=== PATIENT | female | born 1995 | race Hispanic/Latino ===

== ENCOUNTER 2017-11-11 07:49 | Inpatient (IN) | payer MEDICAID, OTHER, SELFPAY ==
[2017-11-11 08:21] VITALS: BMI 33.5
--- NOTE | 2017-11-11 09:16 | PDOC.LDHP ---
Labor and Delivery H&P Chief complaint: contractions HPI: This is a 22yo @ 38.6wk by LMP consistent w/ 9.5wk sontip, presents for CTX that started about 6:00am this morning. She is feeling them every 10min. Also complains of blood tinged leaked of mucous. No gush of fluid, vaginal bleeding. + movement. Denies any MATHIS, RUQ pain. Due date: 11/19/17 Dating criteria: last menstrual period Grav: 3 Para: 2 OB History Details: Has hx BV and Candidiasis in s/p treatment 2010 - pounds 10oz in reading - labor was 7 hrs 2014 - pounds 9oz in [place] - labor was 4 hours Current complications: none Abnormal US findings: No Past Medical History: BV and Candidiasis in s/p treatment Current medications: pre-tong vitamins Previous surgical history: cholecystectomy Social history: none - Physical Exam Vital signs reviewed and normal: yes General: NAD, resting, breathing through contractions Heart: RRR Lungs: nonlabored breathing Abdomen: NTTP Extremeties: trace edema FHT: category 1 - OB Labs Blood type: A RH: negative Antibody Screen: negative HIV: negative RPR: negative HEPSAg: negative 1 hour GCT: negative GBS: negative Rubella: immune Additional Labs: LSIL/HRHPV on PAP. Exposure to TB as recently immigrated from [place] - Quantiferon Gold negative - Plan -: This is a 22 yo @ 38.6 wk by LMP consistent w/ 9.5wk paola presents with CTX and possible LOF. 1) TIUP - Monitor in L&D. Access labor. Amnisure sent to r/o ROM. NST - Alexx strip. Will recheck patient in 2 hours 2) Hx of SGA and previous in [place]. 2nd trimester US normal 3) GBS negative 4) Recent immigration from [place] - TB negative 5) Rh negative - s/p Rhogam at 28weeks. May need Rhogam PP. 6) Hx of BV and Candidiasis in s/p treatment. <Romana Valenzuela - Last Filed: 11/11/17 09:49> <Isaiah Sanchez - Last Filed: 11/11/17 10:37> Allergies/Adverse Reactions: Allergies Allergy/AdvReac Type Severity Reaction Status Date / Time No Known Allergies Allergy Verified 11/11/17 08:17 Attending Addendum - Attending Addendum Date/Time: 11/11/17 1036 I personally evaluated the patient and discussed the management with Dr. VERA. I agree with and repeated the History, Examination, Assessment and Plan documented above with any addition or exceptions noted below. @ 38w6d by good dates in labor with +SROM at 0600. Keep for expectant management as prefers low intervention. Anticipate . <Isaiah Sanchez - Last Filed: 11/11/17 10:37>
[2017-11-11 09:32] LABS: Amnisure Test RUPTURE DETECTED (No Rupture)
[2017-11-11 09:34] LABS: Amnisure Internal Control QC ACCEPTABLE (ACCEPTABLE)
--- NOTE | 2017-11-11 09:51 | PDOC.EVN ---
Event Note - Event Note Event Note: Amnisure positive. SROM likely around 6:00am this morning. Cervical Check by Nurse at 9:45am /-2 posterior. Clear fluid. A/P: 1) TIUP in labor - will admit patient to L&D and continue labor orders. 2) Rh negative - may need Rhogam PP. 3) GBS negative 4) LSIL/HRHPV - f/u outpatient.
[2017-11-11] MEDS: Lactated Ringer's 1,000 ML IV SCH ×2 (10:31→20:58)
[2017-11-11] MEDS ORDERED: Misoprostol 200 MCG TAB PR PRN (10:42)
[2017-11-11] MEDS ORDERED: Carboprost 250 MCG/ML AMP IM PRN (10:42)
[2017-11-11] MEDS ORDERED: Ibuprofen 800 MG TAB PO PRN (10:42)
[2017-11-11] MEDS ORDERED: Ondansetron HCl/PF 4 MG/2 ML Vial IVP PRN (10:42)
[2017-11-11] MEDS ORDERED: Acetaminophen 500 MG TAB PO PRN (10:42)
[2017-11-11] MEDS ORDERED: Lidocaine 1% (PF) 30 ML VIAL SC PRN (10:42)
[2017-11-11] MEDS ORDERED: Promethazine HCl 25 MG/ML VIAL IM PRN (10:42)
[2017-11-11] MEDS ORDERED: Diphenoxylate HCl/Atropine Tablet PO PRN (10:42)
[2017-11-11] MEDS ORDERED: Methylergonovine 0.2 MG/ML VIAL IM PRN (10:42)
[2017-11-11] MEDS ORDERED: Butorphanol Tartrate 1 MG/ML VIAL SLOW IVP PRN (10:42)
[2017-11-11 11:02] LABS: Mean Corpuscular HGB CONC 34.7 g/dL (32.0-36.0); Mean Corpuscular Hemoglobin 29.6 pg (27.0-31.0); Mean Corpuscular Volume 85.3 fl (81.0-99.0); Mean Platelet Volume 9.2 fL (7.4-10.4); Platelet Count 181 thou/uL (130-400); Red Blood Cell (RBC) Count 4.72 mill/uL (4.20-5.40); White Blood Cell (WBC) Count 7.3 thou/uL (4.8-10.8)
[2017-11-11 11:36] LABS: HBSAg Index 0.19 S/CO (0-0.99); HIV (1/2) Antibody/Antigen Non-Reactive (NonReactive); HIV 1/2 INDEX 0.25 S/CO (<1.00); Hep B Surf Ag Non-Reactive S/CO (NonReactive); Syphilis Antibody Nonreactive (Nonreactive); Syphilis Antibody Index 0.03 S/CO (<1.00 Non-Reactive)
--- NOTE | 2017-11-11 11:50 | PDOC.LDPN ---
Labor & Delivery Progress Note - Subjective Subjective: comfortable, painful contractions - Objective Vital signs reviewed and normal: yes General: NAD, breathing through contractions Uterine fundus: palpable contractions SVE: @ 1145 by nurse Amy Dilation: 5 Effacement: 90% Station: -2 - Assessment (1) Term Code(s): Z34.80 - ENCOUNTER FOR SUPRVSN OF NORMAL , UNSP TRIMESTER Current Visit: Yes Status: Acute Comment: 22 yo @ 38.6wk by LMP consistent w/ 9.5wk sono -Pt making change on her own -Intermittent monitoring as she is low risk -cervical checks q2h Plan: continue plan of care <Usha Saunders - Last Filed: 11/11/17 11:48> Attending Addendum - Attending Addendum Date/Time: 11/11/17 8805 I personally evaluated the patient and discussed the management with Dr. VERA. I agree with the History, Examination, Assessment and Plan documented above with any addition or exceptions noted below. <Isaiah Sanchez - Last Filed: 11/11/17 12:56>
--- NOTE | 2017-11-11 13:49 | PDOC.LDPN ---
Labor & Delivery Progress Note - Subjective Subjective: painful contractions - Objective Vital signs reviewed and normal: yes General: breathing through contractions Uterine fundus: non tender Dilation: 7 Effacement: 90% Station: -1 FHT: category 1 (130/mod/+accel/no decel) [place] contractions every: q1-3 minutes Plan: continue plan of care -: 22 yo @ 38.6wk by LMP consistent w/ 9.5wk sono - Pt making change on her own - Intermittent monitoring as she is low risk - Cervical checks q2h
[2017-11-11] MEDS: NS / Oxytocin 40 units/1000ml 1,000 ML IV PRN ×2 (16:45→18:05)
--- NOTE | 2017-11-11 16:55 | PDOC.LDPN ---
Labor & Delivery Progress Note - Subjective Subjective: painful contractions - Objective Vital signs reviewed and normal: yes General: breathing through contractions Dilation: 9 Effacement: 100% Station: 1+ FHT: category 1 (120/mod/+accel/no decel) [place] contractions every: q1-3 min <Susan Garcia - Last Filed: 11/11/17 16:22> Attending Addendum - Attending Addendum Date/Time: 11/11/17 1804 I personally evaluated the patient and discussed the management with Dr. Garcia. I agree with the History, Examination, Assessment and Plan documented above with any addition or exceptions noted below. <Isaiah Sanchez - Last Filed: 11/11/17 18:04>
--- NOTE | 2017-11-11 16:57 | PDOC.OPDEL ---
OB Operative/Delivery Note Delivery Dr/Surgeon: Susan Garcia MD Assist: Supervising Resident: Romana Felix DO Pre-Delivery Diagnosis: active labor Procedure/Post Delivery Dx: spontaneous vaginal delivery Weeks gestation: 38 (38.6w) Anesthesia: other - Additional Findings/Plan Placenta delivered: spontaneous Repaired Obstetrical Laceration: none Estimated blood loss: 250 mL Post delivery plan: routine recovery (Compound presentation on delivery with L hand)
[2017-11-11] MEDS ORDERED: NS / Oxytocin 40 units/1000ml 1,000 ML ONE (18:04)
[2017-11-11] MEDS ORDERED: Milk Of Magnesia 30 ML UDCUP PO PRN (19:46)
[2017-11-11] MEDS ORDERED: Ferrous Sulfate 325 MG TAB PO SCH ×2 (19:46→20:00)
[2017-11-11] MEDS ORDERED: Acetaminophen/Codeine 30-300mg Tablet PO PRN ×2 (19:46)
[2017-11-11] MEDS ORDERED: Adacel (T-DAP) 0.5 ML VIAL IM ONE (19:46)
[2017-11-11] MEDS ORDERED: Bisacodyl 10 MG SUPP PR PRN (19:46)
[2017-11-11] MEDS ORDERED: Lanolin Ointment 7 GM TUBE TOP PRN (19:46)
[2017-11-11] MEDS ORDERED: Benzocaine/Menthol 20-0.5% 60 ML CAN TOP PRN (19:46)
[2017-11-11] MEDS ORDERED: NS / Oxytocin 40 units/1000ml 1,000 ML IV SCH (19:46)
[2017-11-11] MEDS: Docusate Calcium (SURFAK) 240 MG CAP PO SCH (21:48)
[2017-11-11] MEDS: Ibuprofen 800 MG TAB PO SCH (21:49)
[2017-11-12] MEDS: Lactated Ringer's 1,000 ML IV SCH (01:23)
[2017-11-12] MEDS: Ibuprofen 800 MG TAB PO SCH ×3 (01:23→21:40)
[2017-11-12 06:02] LABS: Hemoglobin 12.7 g/dL (12.0-16.0); Mean Corpuscular HGB CONC 34.2 g/dL (32.0-36.0); Mean Corpuscular Hemoglobin 29.4 pg (27.0-31.0); Mean Corpuscular Volume 85.9 fl (81.0-99.0); Mean Platelet Volume 8.6 fL (7.4-10.4); Platelet Count 160 thou/uL (130-400); RBC Distribution Width 13.7 % (11.5-14.5); Red Blood Cell (RBC) Count 4.33 mill/uL (4.20-5.40); White Blood Cell (WBC) Count 8.6 thou/uL (4.8-10.8)
--- NOTE | 2017-11-12 08:42 | PDOC.PP ---
Post Progress Note Post Day #: 1 Subjective: Pt doing well. Pain well controlled. Ambulating to restroom without difficulty. Tolerating Po and passing flatus. PO intake tolerated: yes Flatus: yes Ambulation: yes Vital Signs (12 hours) Temp Pulse Resp BP 11/12/17 04:27 99.0 F 71 18 106/56 L 11/12/17 01:10 98.7 F 72 18 106/55 L 11/11/17 21:48 98.2 F 88 18 119/76 Weight Weight 78.018 kg - Physical Examination General: NAD Cardiovascular: no m/r/g, RRR Respiratory: clear to auscultation bilaterally, non-labored breathing Abdominal: + bowel sounds, lochia, no distention, appropriately TTP Fundus firm & at: Below umbilicus Extremities: negative homans (B) Skin: no rash Neurological: no gross focal deficits Psychiatric: A&Ox3, normal affect Result Diagrams: 11/12/17 05:51 Additional Labs: Post Labs Blood Type A NEGATIVE 11/11/17 10:45 Hep Bs Antigen Non-Reactive S/CO (NonReactive) 11/11/17 10:45 (1) (normal spontaneous vaginal delivery) Code(s): O80 - ENCOUNTER FOR FULL-TERM UNCOMPLICATED DELIVERY Status: Acute Comment: This is a 22yo @ 38.6 delivered via on 11/11/17 at 1644. EBL 250. APGARS 8,9 Recovering normally. Rhogam given 11/11 due to Rh- LSIL/HRHPV will need to be f/u outpatient w/ PCP (2) Need for rhogam due to Rh negative mother Code(s): Z29.13 - ENCOUNTER FOR PROPHYLACTIC RHO(D) IMMUNE GLOBULIN Status: Acute Comment: Rhogam given 11/11 (3) Term Code(s): Z34.80 - ENCOUNTER FOR SUPRVSN OF NORMAL , UNSP TRIMESTER Status: Acute Comment: 22 yo @ 38.6wk by LMP consistent w/ 9.5wk sono now s/p - Assessment/Plan Consider d/c home today pending infant and . <Romana Valenzuela - Last Filed: 11/12/17 08:40> Vital Signs (12 hours) Temp Pulse Resp BP 11/12/17 13:00 98.4 F 84 18 11/12/17 12:31 98.4 F 84 18 105/69 11/12/17 09:01 98.0 F 65 18 106/64 11/12/17 08:20 98.4 F 84 18 Weight Weight 78.018 kg Result Diagrams: 11/12/17 05:51 Additional Labs: Post Labs Blood Type A NEGATIVE 11/11/17 10:45 Hep Bs Antigen Non-Reactive S/CO (NonReactive) 11/11/17 10:45 <Adelita Abad - Last Filed: 11/12/17 16:54> Attending Addendum - Attending Addendum Date/Time: 11/12/17 1652 I personally evaluated the patient and discussed the management with Dr. Valenzuela I agree with the History, Examination, Assessment and Plan documented above with any addition or exceptions noted below. 22 yo female s/p uncomplicated . Doing well. Pain controlled. Lochia mild. Would like early d/c if possible. No lacerations or edema. Will monitor throughout the day. Possible early d/c if continues to do well. ABrayMD <Adelita Abad - Last Filed: 11/12/17 16:54>
[2017-11-12] MEDS: Prenatal Vitamin 1 TAB PO SCH (09:26)
[2017-11-12] MEDS: Docusate Calcium (SURFAK) 240 MG CAP PO SCH ×2 (09:26→21:40)
[2017-11-12] MEDS: Ferrous Sulfate 325 MG TAB PO SCH ×2 (09:27→16:47)
[2017-11-12 22:21] VITALS: TEMP 98
[2017-11-13] MEDS: Ibuprofen 800 MG TAB PO SCH (06:21)
[2017-11-13 08:53] VITALS: BP 92/50
[2017-11-13] MEDS: Prenatal Vitamin 1 TAB PO SCH (09:42)
[2017-11-13] MEDS: Docusate Calcium (SURFAK) 240 MG CAP PO SCH (09:42)
[2017-11-13] MEDS: Ferrous Sulfate 325 MG TAB PO SCH (09:42)
--- NOTE | 2017-11-13 12:21 | PDOC.PP ---
Post Progress Note Post Day #: 2 Subjective: Pt doing well. Pain well controlled. Ambulating, tolerating PO, normal urination. + flatus PO intake tolerated: yes Flatus: yes Ambulation: yes Vital Signs (12 hours) Temp Pulse Resp BP Pulse Ox 11/13/17 08:00 98.0 F 70 16 92/50 L 100 Weight Weight 78.018 kg - Physical Examination General: NAD Cardiovascular: no m/r/g, RRR Respiratory: clear to auscultation bilaterally, non-labored breathing Abdominal: + bowel sounds, lochia (minimal), no distention, appropriately TTP Fundus firm & at: below umbilicus Extremities: negative homans (B) Neurological: no gross focal deficits Psychiatric: A&Ox3, normal affect Result Diagrams: 11/12/17 05:51 Additional Labs: Post Labs Blood Type A NEGATIVE 11/11/17 10:45 Hep Bs Antigen Non-Reactive S/CO (NonReactive) 11/11/17 10:45 (1) (normal spontaneous vaginal delivery) Code(s): O80 - ENCOUNTER FOR FULL-TERM UNCOMPLICATED DELIVERY Status: Acute Comment: This is a 22yo @ 38.6 delivered via on 11/11/17 at 1644. EBL 250. APGARS 8,9 Recovering normally. Rhogam given 11/11 due to Rh- LSIL/HRHPV will need to be f/u outpatient w/ PCP Will d/c home today w/ f/u in 2 weeks or sooner if any concerns. (2) Need for rhogam due to Rh negative mother Code(s): Z29.13 - ENCOUNTER FOR PROPHYLACTIC RHO(D) IMMUNE GLOBULIN Status: Acute Comment: Rhogam given 11/11 (3) Term Code(s): Z34.80 - ENCOUNTER FOR SUPRVSN OF NORMAL , UNSP TRIMESTER Status: Acute Comment: 22 yo @ 38.6wk by LMP consistent w/ 9.5wk sono now s/p <Romana Valenzuela - Last Filed: 11/13/17 12:20> Weight Weight 78.018 kg Result Diagrams: 11/12/17 05:51 Additional Labs: Post Labs Blood Type A NEGATIVE 11/11/17 10:45 Hep Bs Antigen Non-Reactive S/CO (NonReactive) 11/11/17 10:45 <Adelita Abad - Last Filed: 11/14/17 10:48> Attending Addendum - Attending Addendum Date/Time: 11/15/17 1600 I personally evaluated the patient and discussed the management with Dr. Valenzuela I agree with the History, Examination, Assessment and Plan documented above with any addition or exceptions noted below. 22 yo female s/p uncomplicated PPD#2 Doing well. Ready for d/c. Breast feeding as well as supplementing with formula. Pain controlled. Lochia appropriate. Fundus firm below umbilicus and nontender. RRR. No M/R/G. Ok to d/c to home. Followup with PNC in 2 wks. ABrayMD <Adelita Abad - Last Filed: 11/14/17 10:48>
== END 2017-11-13 14:00 | disposition home or self-care (01) | DRG 775 ==
LOC: L&D/OP 07:49 → L&D 10:06 → 3SW 19:43
PROVIDERS: ADMIT Emergency Medicine; ATTEND Emergency Medicine
PROC: 10E0XZZ Delivery of Products of Conception, External Approach (ICD-10-PCS; principal; 2017-11-11)
PROC: 10907ZC Drainage of Amniotic Fluid, Therapeutic from Products of Conception, Via Natural or Artificial Opening (ICD-10-PCS; 2017-11-11)
DX: O26.893 Other specified pregnancy related conditions, third trimester (principal); Z3A.38 38 weeks gestation of pregnancy; Z37.0 Single live birth; Z67.11 Type A blood, Rh negative
CPT/HCPCS: 36415; 84112; 85027; 85461; 86780; 86850; 86900; 86901; 87340; 87389; 90384; 96372; 99285; J2001

== ENCOUNTER 2019-06-26 07:55 | Inpatient (IN) | payer MEDICAID, SELFPAY ==
[2019-06-26] MEDS ORDERED: Lidocaine 1% (PF) 30 ML VIAL SC PRN (09:21)
[2019-06-26] MEDS ORDERED: hydrALAZINE 20 MG/ML VIAL SLOW IVP PRN ×2 (09:21→15:53)
[2019-06-26] MEDS ORDERED: Ondansetron PF 4 MG/2 ML Vial IVP PRN (09:21)
[2019-06-26] MEDS ORDERED: Promethazine HCl 25 MG/ML VIAL IM PRN (09:21)
[2019-06-26] MEDS ORDERED: Ibuprofen 800 MG TAB PO PRN (09:21)
[2019-06-26] MEDS ORDERED: Butorphanol Tartrate 1 MG/ML VIAL SLOW IVP PRN (09:31)
[2019-06-26 10:37] LABS: Hemoglobin 14.1 g/dL (12.0-16.0); Mean Corpuscular HGB CONC 34.2 g/dL (32.0-36.0); Mean Corpuscular Hemoglobin 28.3 pg (27.0-31.0); Mean Corpuscular Volume 82.9 fL (78.0-98.0); Mean Platelet Volume 9.3 fL (7.4-10.4); Platelet Count 189 thou/uL (130-400); RBC Distribution Width 14.3 % (11.5-14.5); Red Blood Cell (RBC) Count 4.97 mill/uL (4.20-5.40)
--- NOTE | 2019-06-26 10:56 | PDOC.FPROB ---
FMR OB H&P: HPI - History of Present Illness Chief Complaint: contractions, bloody show Indentification: 24 yo at 40.0 wga by 24wk sono History of Present Illness: Pt is here for contractions which started sometime yesterday. Having bloody show. Currently 3-4 minutes apart. +FM, denies LOF. Primary Care Physician: Snow Nguyen, [facility] [place] FMR OB H&P: Current - Care : 4 Para: 3003 Gestational age: 40 Due date: 06/26/19 Dating Criteria: 24 wk sono Course/Complications: Rh-negative Anemia of Obesity Late to PNC ~22 wks - OB Labs Blood type: A RH: negative Antibody Screen: negative HIV: negative RPR: negative HepBsAg: negative Rubella: immune Gonorrhea: negative Chlamydia: negative Pap Smear: ascus, hpv+ 1 hour gtt: wnl GBS: negative H&H: wnl FMR OB H&P: History - Past Medical History PMH: obesity - OB History OB History: 3 svds previously - [employer] History [employer] History: ASCUS pap. HPV+. Needs colpo 6 wks - Surgical History Sx History: none - Social History Social History: denies FMR OB H&P: Medications - Current Home Medications: Medication Instructions Recorded Confirmed Type Ferrous Sulfate [Feosol] 325 mg PO BID-WM #60 tab 11/12/17 Rx Ibuprofen [Motrin] 800 mg PO Q8HR #30 tab 11/12/17 Rx 21/Iron Fu/Folic Acid 1 tablet PO DAILY #30 tablet MDD 1 11/12/17 Rx [ Complete Caplet] Allergies/Adverse Reactions: Allergies Allergy/AdvReac Type Severity Reaction Status Date / Time No Known Allergies Allergy Verified 11/11/17 08:17 FMR OB H&P: ROS - Review of Systems General: denies: fever/chills, weight/appetite/sleep changes Eyes: denies: vision changes ENT: denies: nasal congestion, rhinorrhea, sore throat Cardiovascular: denies: chest pain, palpitation, edema Respiratory: denies: cough, congestion, shortness of breath Gastrointestinal: denies: abdominal pain, nausea, vomiting, diarrhea Genitourinary (Female): reports: vaginal bleeding, contractions Musculoskeletal: denies: pain Neurologic: denies: syncope, weakness Integumentary: denies: itching, rash Hematologic/Lymphatic: denies: prolonged or excessive bleeding Psychological: denies: depression, anxiety FMR OB H&P: Vital Signs - Maternal Vital signs: wnl - Heart Tones Baseline: 140 Variability: moderate Acceleration: present Deceleration: absent Category: category 1 [place] contractions every: 4 min FMR OB H&P: Physical Exam - Physical Exam General: NAD, awake, alert and oriented HEENT: normocephalic and atraumatic, no scleral icterus Heart: RRR, normal S1/S2 General: CTAB, no respiratory distress Abdomen: soft, gravid Neurological: no focal deficit Skin: no rash, good tugor Psychiatric: intact recent and remote memory, normal mood and affect - Pelvic Exam SVE: 580/-2 Estimated Weight: 7 lbs FMR OB H&P: Results - Labs Lab results: Laboratory Results - last 24 hr 06/26/19 06/26/19 09:56 09:56 WBC 10.0 RBC 4.97 Hgb 14.1 Hct 41.2 MCV 82.9 MCH 28.3 MCHC 34.2 RDW 14.3 Plt Count 189 MPV 9.3 Blood Type A NEGATIVE Antibody Screen NEGATIVE FMR OB H&P: A/P Disposition: admit to L&D for expectant delivery. Discussion: Date/Time: 06/26/19 1054 Contractions at 40.0 wga - pt actively van regularly - admit to L&D, at 5 cm - expectant mgmt - pt does NOT want epidural. - continuous EFM and toco Rh-negative - give Rhogam after delivery within 72 hours. - received Rhogam on 04/23 at 28 wks Obesity Late to PNC ASCUS, HPV+ - will need PP colpo This H&P was discussed with Dr. Sanchez, who agrees with the above documentation and plan. Signature: Taya Hardin MD PGY1 Addendum - Attending - Attending Attestation Date/Time: 06/26/19 1142 I personally evaluated the patient and discussed the management with the team. I agree with the History, Examination, Assessment and Plan documented above with any addition or exceptions noted below. Admit for expectant management. Anticipate .
[2019-06-26 10:59] VITALS: BMI 28.9
[2019-06-26 11:09] LABS: HBSAg Index 0.17 S/CO (0-0.99); Hep B Surf Ag Non-Reactive S/CO (NonReactive)
[2019-06-26 11:19] LABS: Syphilis Antibody Nonreactive (Nonreactive); Syphilis Antibody Index 0.04 S/CO (<1.00 Non-Reactive)
--- NOTE | 2019-06-26 11:44 | PDOC.BPN ---
<Jennifer Hardin - Last Filed: 06/26/19 11:43> - Brief Progress Note Labor Check Time: 1121 Pt having mod pain, still does not want epidural Vital wnl. FHT: cat 1, no decels Ctx: q3-4 min SVE: /-1 Continue expectant mgmt Discussed w/ B.W.: suggests AROM. recheck in 1-2 hours. Taya Hardin <Isaiah Sanchez - Last Filed: 06/26/19 11:46> Addendum - Attending - Attending Attestation Date/Time: 06/26/19 1146 AROM when able. [facility]thewise expectant management. Anticipate .
--- NOTE | 2019-06-26 12:00 | PDOC.BPN ---
- Brief Progress Note consented pt for AROM. Risk, benefits, alternatives discussed. Pt agreed. Head well engaged. AROM performed at 11:58. clear fluid. Check unchanged after AROM. Continue expectant mgmt.
[2019-06-26] MEDS: NS / Oxytocin 40 units/1000ml 1,000 ML IV PRN ×2 (12:26→13:30)
[2019-06-26] MEDS ORDERED: Lanolin Ointment 7 GM TUBE TOP PRN (15:53)
[2019-06-26] MEDS ORDERED: Milk Of Magnesia 30 ML UDCUP PO PRN (15:53)
[2019-06-26] MEDS ORDERED: Bisacodyl 10 MG SUPP PR PRN (15:53)
[2019-06-26] MEDS ORDERED: NS / Oxytocin 40 units/1000ml 1,000 ML IV SCH (15:53)
[2019-06-26] MEDS: Ibuprofen 800 MG TAB PO PRN (16:57)
[2019-06-26] MEDS: Ferrous Sulfate 325 MG TAB PO SCH (18:48)
[2019-06-26] MEDS: Docusate Calcium (SURFAK) 240 MG CAP PO SCH (20:59)
[2019-06-27] MEDS: Ibuprofen 800 MG TAB PO PRN (00:20)
--- NOTE | 2019-06-27 06:50 | PDOC.OBPPN ---
FMR OB PN: Subj - Interval History Hospital Day: 2 Day: 1 Chief Complaint: None. Indentification: 24 G4 now P4004, s/p at 40.0 wga. Interval History: Pain/lochia improving. Denies MATHIS, N/V. + flatus. well. FMR OB PN: Obj - Maternal Vital signs: BP: 108/55 HR:69 RR: 14 Tmax: 98.6 F Pox: 97% on RA - Urine output I&O: 06/25/19 06/26/19 06/27/19 06:59 06:59 06:59 Output Total 178 Balance -178 - Lochia Lochia: downtrending. - Pain Management Pain scale: 0 (denies pain) Intervention: oral medication (ibuprofen.) FMR OB PN: Exam - Physical Exam General: NAD, awake, alert and oriented HEENT: normocephalic and atraumatic Heart: no edema General: no respiratory distress Abdomen: soft, no masses Deviation from normal: minimal TTP, fundus firm and 1 finger-width below umbilicus. Neurological: no focal deficit : bandage intact, no edema Lymphatic: no unusual bruising or bleeding Psychiatric: normal mood and affect - Pelvic Exam : normal lochia FMR OB PN: Data - Labs Lab results: Laboratory Results - last 24 hr 06/26/19 06/26/19 06/26/19 09:56 09:56 09:56 WBC RBC Hgb Hct MCV MCH MCHC RDW Plt Count MPV Syphilis IgG/IgM Ab Nonreactive Hep Bs Antigen Non-Reactive Blood Type A NEGATIVE Antibody Screen NEGATIVE 06/26/19 09:56 WBC 10.0 RBC 4.97 Hgb 14.1 Hct 41.2 MCV 82.9 MCH 28.3 MCHC 34.2 RDW 14.3 Plt Count 189 MPV 9.3 Syphilis IgG/IgM Ab Hep Bs Antigen Blood Type Antibody Screen FMR OB PN: A/P - Problem List (1) care and examination Current Visit: Yes Status: Acute Code(s): Z39.2 - ENCOUNTER FOR ROUTINE FOLLOW-UP (2) (normal spontaneous vaginal delivery) Current Visit: No Status: Acute Code(s): O80 - ENCOUNTER FOR FULL-TERM UNCOMPLICATED DELIVERY Comment: This is a 22yo @ 38.6 delivered via on 5/18/18 at 1644. EBL 250. APGARS 8,9 Recovering normally. Rhogam given 11/11 due to Rh- LSIL/HRHPV will need to be f/u outpatient w/ PCP Will d/c home today w/ f/u in 2 weeks or sooner if any concerns. (3) Need for rhogam due to Rh negative mother Current Visit: No Status: Acute Code(s): Z29.13 - ENCOUNTER FOR PROPHYLACTIC RHO(D) IMMUNE GLOBULIN Comment: Rhogam given 11/11 Disposition: admitted to . If TBili normal, may d/c later today since multiparous. Following up w/ PNC. Discussion: Date/Time: 06/27/19 0648 day #1, s/p without lacs - subjectively doing well. - continues to breastfeed. - VSS. Afebrile. - Pain well-controlled on motrin. - Routine care. - Likely d/c later today after receiving Rhogam for Rh-negative status. is also Rh-negative. Rh-negative - s/p Rhogam at 28 weeks. Give Rhogam prior to d/c. Anemia of - Hgb prior to delivery normal. H/H 14.1/41.2. Possibly hemoconcentrated/ dehydrated. - QBL 60 mL. - Continue PNV at discharge Signature: Taya Hardin MD PGY1 Addendum - Attending - Attending Attestation Date/Time: 06/27/19 1203 I personally evaluated the patient and discussed the management with Dr. Hardin. I agree with the History, Examination, Assessment and Plan documented above with any addition or exceptions noted below. Likely dc today.
[2019-06-27] MEDS ORDERED: Prenatal Vitamin 1 TAB PO SCH (09:00)
[2019-06-27] MEDS ORDERED: Adacel (T-DAP) 0.5 ML SYRINGE IM ONE (09:00)
[2019-06-27] MEDS: Ferrous Sulfate 325 MG TAB PO SCH (09:25)
[2019-06-27] MEDS: Docusate Calcium (SURFAK) 240 MG CAP PO SCH (10:42)
[2019-06-27 12:09] VITALS: BP 102/56; TEMP 98
--- NOTE | 2019-06-28 11:20 | DN ---
DATE OF PROCEDURE: 06/26/2019 DELIVERING PHYSICIANS: Norma Hardin. Attending: Dr. Isaiah Sanchez PROCEDURE PERFORMED: Spontaneous vaginal delivery. ANESTHESIA: None. QBL: 60 mL. PREOPERATIVE DIAGNOSES: 1. Term intrauterine in labor. 2. RhoGAM negative . 3. Obesity. 4. Anemia of . 5. Late to care. POSTOPERATIVE DIAGNOSES: 1. Term intrauterine , delivered. 2. RhoGAM negative . 3. Obesity. 4. Anemia of . 5. Late to care. INDICATIONS: A 24-year-old female G4, P3-0-0-3, who presents in active labor at 5 cm. DELIVERY NOTE: This is a 24-year-old female, G4, P3-0-0-3 at 40.0 weeks, who delivered a viable male infant on 06/26/2019 at 12:20. Following an uneventful antepartum course, a vigorous male was delivered over an intact perineum in the occipitoanterior position. Anterior shoulder and then remainder of the body delivered. No nuchal cord. The head was held down, and mouth and nares were bulb suctioned. Delayed cord clamping for 30 seconds to 1 minute was performed. Cord clamped and cut and cord blood collected. Placenta delivered intact in a Dunn presentation with a 3-vessel cord noted. Fundal massage was performed and the fundus was firm. The cervix and vagina were inspected and found to be free of lacerations. Infant went to Nursery in good condition for routine care. Apgars were 9 and 9 at one and five minutes respectively. The patient tolerated delivery well and went to after routine recovery. Job ID: [id number] Attending Addendum: I was present for the entire delivery. [facility] HOSPITALAgustin
--- NOTE | 2019-07-03 04:15 | PQF ---
KAYLYN PLUMMER Brandon MD [id number] CLINICAL DOCUMENTATION CLARIFICATION FORM: POST DISCHARGE Addendum to original discharge summary date: ____ Late entry note date: __ DATE: 07/03/2019 ATTN:Isaiah Sanchez MD Please exercise your independent, professional judgment in responding to the clarification form. Clinical indicators are provided on the bottom of this form for your review Please check appropriate box(s): Kindly Clarify whether Patient had HPV infection complicating this childbirth or not [ ] HPV infection was complicating this childbirth [x ] HPV infection was not complicating this childbirth [ ] Other diagnosis [ ] Unable to determine In addition, please specify: Present on Admission (POA): [ x] Yes [ ] No [ ] Unable to determine For continuity of documentation, please document condition throughout progress notes and discharge summary. Thank You. CLINICAL INDICATORS - SIGNS / SYMPTOMS / LABS ASCUS HPV positive - Documented in H&P on 06/26 by MELBA DAY MD Anemia in - Documented in H&P on 06/26 by MELBA DAY MD Rh negative - Documented in H&P on 06/26 by MELBA DAY MD LSIL/HRHPV will need to be f/u outpatient with PCP - Documented in PNs on 06/27 by MELBA DAY MD [employer] 40 weeks of gestation mother Obesity Spontaneous vaginal delivery TREATMENTS: Will need PP colo - Documented in H&P on 06/26 by MELBA DAY MD [employer] Pay[employer] Win[employer] (This form is maintained as a part of the permanent medical record) 2014 [employer]. All Rights Reserved Doug Zaidi [not provided] [not provided] MTDD
== END 2019-06-27 15:25 | disposition home or self-care (01) | DRG 807 ==
LOC: L&D/OP 07:55 → L&D 09:59 → 3SW 18:45
PROVIDERS: ADMIT Emergency Medicine; ATTEND Emergency Medicine
PROC: 10E0XZZ Delivery of Products of Conception, External Approach (ICD-10-PCS; principal; 2019-06-26)
PROC: 10907ZC Drainage of Amniotic Fluid, Therapeutic from Products of Conception, Via Natural or Artificial Opening (ICD-10-PCS; 2019-06-26)
DX: O26.893 Other specified pregnancy related conditions, third trimester (principal); Z37.0 Single live birth; Z67.91 Unspecified blood type, Rh negative; O99.02 Anemia complicating childbirth; D64.9 Anemia, unspecified; O99.214 Obesity complicating childbirth; E66.9 Obesity, unspecified; Z3A.40 40 weeks gestation of pregnancy; O34.43 Maternal care for other abnormalities of cervix, third trimester
CPT/HCPCS: 36415; 85027; 86780; 86850; 86900; 86901; 87340; 99285; J0595

== ENCOUNTER 2022-10-18 15:08 | Outpatient (CLI) | payer OTHER | END 2022-10-18 15:09 | disposition home or self-care (01) | LOC: RAD 15:08 | PROVIDERS: ATTEND Obstetrics & Gynecology | DX: O99.511 Diseases of the respiratory system complicating pregnancy, first trimester (principal) | CPT/HCPCS: 71046 ==